=== PATIENT | male | born 2000 | race Hispanic/Latino ===

== ENCOUNTER 2025-01-29 05:04 | Emergency (ER) | payer BC ==
[~2025-01-29] VITALS: Ht 170.2 cm; Wt 90.7 kg
[2025-01-29 05:10] VITALS: TEMP 98
[2025-01-29 05:37] LABS: BASOPHILS # (AUTO) 0.1 (0.0-0.1); BASOPHILS % 0.5 % (0.0-1.0); EOSINOPHILS # (AUTO) 0.3 (0.0-0.4); EOSINOPHILS % 3.3 % (0.0-6.0); HEMATOCRIT 43.1 % (38.2-49.6); LYMPHOCYTES # (AUTO) 2.1 (1.0-3.2); LYMPHOCYTES % 22.3 % (18.0-39.1); MEAN CORPUSCULAR HEMOGLOBIN 31.1 pg (28-32); MEAN CORPUSCULAR HGB CONC 34.8 g/dL (31-35); MEAN CORPUSCULAR VOLUME 89.2 fL (81-99); MONOCYTES # (AUTO) 0.8 (0.2-0.8); MONOCYTES % 7.9 % (4.4-11.3); NEUTROPHILS # (AUTO) 6.3 (2.1-6.9); NEUTROPHILS % 65.6 % (38.7-80.0); PLATELET COUNT 272 x10e3/uL (140-360); RED BLOOD COUNT 4.83 x10e6/uL (4.3-5.7); RED CELL DISTRIBUTION WIDTH 12.4 % (11.7-14.4); WHITE BLOOD COUNT 9.56 x10e3/uL (4.8-10.8)
[2025-01-29] MEDS: ONDANSETRON HCL INJ 2MG/ML 2ML 2 MG/ML VIAL IV STA (05:54)
[2025-01-29] MEDS: SODIUM CHLORIDE 0.9% 1000ML 1,000 ML IV ONE (05:54)
[2025-01-29] MEDS: DICYCLOMINE HCL 20 MG/2 ML VIAL IM ONE (05:55)
[2025-01-29 06:03] LABS: ALBUMIN 4.7 g/dL (3.5-5.0); ALBUMIN/GLOBULIN RATIO 1.5 (0.8-2.0); ANION GAP 16.9 mmol/L (8-16); BILIRUBIN,TOTAL 0.3 mg/dL (0.2-1.2); CALCIUM 8.8 mg/dL (8.4-10.2); CREATININE, SERUM 1.03 mg/dL (0.72-1.25); TOTAL PROTEIN 7.8 g/dL (6.5-8.1)
[2025-01-29 06:05] LABS: POTASSIUM 2.9 mmol/L (3.5-5.1)
[2025-01-29] MEDS: POTASSIUM CHLORIDE 20 MEQ TAB CR PO STA (06:24)
[2025-01-29] MEDS: POTASSIUM CHLORIDE 10MEQ/100ML 100 ML IV SCH (06:25)
[2025-01-29] MEDS ORDERED: DICYCLOMINE HCL20 MG PO (07:36)
[2025-01-29] MEDS ORDERED: ONDANSETRON ODT4 MG PO (07:36)
[2025-01-29 08:00] VITALS: PULSE 67; RESP 16; O2SAT 99
== END 2025-01-29 08:09 | disposition home or self-care (01) ==
LOC: ER 05:29
DX: R10.13 Epigastric pain (principal); K29.70 Gastritis, unspecified, without bleeding; E87.6 Hypokalemia; R11.2 Nausea with vomiting, unspecified; L30.9 Dermatitis, unspecified
CPT/HCPCS: 36415; 80053; 83690; 85025; 99283; J0500; J2405; J2470; J3480; J7030

== ENCOUNTER 2025-05-16 02:16 | Observation (INO) | payer BC ==
[~2025-05-16] VITALS: Ht 170.2 cm; Wt 90.7 kg
[~2025-05-16 02:16] MED LIST: DICYCLOMINE HCL20 MG PO; ONDANSETRON ODT4 MG PO
[2025-05-16] MEDS: ONDANSETRON HCL INJ 2MG/ML 2ML 2 MG/ML VIAL IV STA ×2 (03:31→04:41)
[2025-05-16] MEDS: DICYCLOMINE HCL 20 MG/2 ML VIAL IM ONE (03:31)
[2025-05-16] MEDS: SODIUM CHLORIDE 0.9% 1000ML 1,000 ML IV ONE (03:31)
[2025-05-16] MEDS: Morphine 2mg Syringe 2 MG/ML SYR IV ONE (03:31)
[2025-05-16 03:47] LABS: BASOPHILS % 0.4 % (0.0-1.0); EOSINOPHILS % 5.4 % (0.0-6.0); LYMPHOCYTES % 20.7 % (18.0-39.1); MONOCYTES % 8.6 % (4.4-11.3); NEUTROPHILS % 64.5 % (38.7-80.0); RED CELL DISTRIBUTION WIDTH 12.7 % (11.7-14.4)
[2025-05-16 04:01] LABS: EST GLOMERULAR FILTRATION RATE 106.0 ML/MIN (>=60)
[2025-05-16] MEDS: Morphine 4mg INJECTION 4 MG/ML INJ IV ONE (04:41)
[2025-05-16 04:43] VITALS: TEMP 97.8
[2025-05-16 06:30] VITALS: PULSE 72; RESP 17
[2025-05-16] MEDS ORDERED: ONDANSETRON HCL INJ 2MG/ML 2ML 2 MG/ML VIAL IV PRN ×2 (07:15→16:30)
[2025-05-16] MEDS: SODIUM CHLORIDE 0.9% 1000ML 1,000 ML IV SCH ×2 (08:41→20:27)
[2025-05-16] MEDS ORDERED: MIDAZOLAM HCL 2 MG/2 ML VIAL ONE (15:22)
[2025-05-16] MEDS ORDERED: ROCURONIUM BROMIDE 1 ML IV ONE (15:22)
[2025-05-16] MEDS ORDERED: PROPOFOL IV EMULSION 10 MG/ML 20 ML VIAL ONE (15:22)
[2025-05-16] MEDS ORDERED: FENTANYL CITRATE/PF 100MCG/2 ML INJ ONE ×3 (15:22→16:13)
[2025-05-16] MEDS ORDERED: LIDOCAINE HCL 2% LOCAL INJ 5 ML SDV VIAL INJ ONE (15:22)
[2025-05-16] MEDS ORDERED: LABETALOL HCL 0 ML ONE (15:27)
[2025-05-16] MEDS ORDERED: HYDROMORPHONE 2MG/ML ONE (15:28)
[2025-05-16] MEDS ORDERED: LACTATED RINGER'S 0 ML ONE (15:47)
[2025-05-16] MEDS ORDERED: FAMOTIDINE 20 MG/2 ML VIAL IV ONE (15:53)
[2025-05-16] MEDS ORDERED: DEXAMETHASONE SOD PHOS INJ 4 MG/ML SDV ONE (15:53)
[2025-05-16] MEDS ORDERED: ONDANSETRON HCL INJ 2MG/ML 2ML 2 MG/ML VIAL ONE (15:53)
[2025-05-16] MEDS ORDERED: ACETAMINOPHEN 1000 MG/100 ML 100 ML IV ONE (16:06)
[2025-05-16] MEDS ORDERED: LABETALOL HCL 20 ML ONE (16:08)
[2025-05-16] MEDS ORDERED: SUGAMMADEX SODIUM 200 MG/2 ML VIAL IV ONE (16:09)
[2025-05-16] MEDS ORDERED: KETOROLAC TROMETHAMINE 30 MG/ML VIAL ONE (16:27)
[2025-05-16] MEDS: HYDROMORPHONE 1MG/1ML INJ ONE (17:36)
[2025-05-16 20:00] VITALS: BP 138/90; PULSE 79; RESP 16; TEMP 97.7; O2SAT 100
[2025-05-16 20:09] VITALS: BP 129/75; PULSE 82; RESP 16; TEMP 99; O2SAT 98
[2025-05-16] MEDS: HYDROCODONE/APAP 5MG-325MG TAB PO PRN (20:18)
[2025-05-16] MEDS: KETOROLAC TROMETHAMINE 30 MG/ML VIAL IM PRN (22:25)
[2025-05-17 04:00] VITALS: BP 111/69; PULSE 73; RESP 16; TEMP 98.2; O2SAT 99
[2025-05-17] MEDS: Morphine 4mg INJECTION 4 MG/ML INJ IV PRN (06:28)
[2025-05-17 06:41] LABS: BASOPHILS % 0.2 % (0.0-1.0); EOSINOPHILS % 0.0 % (0.0-6.0); LYMPHOCYTES % 8.2 % (18.0-39.1); MONOCYTES % 10.0 % (4.4-11.3); NEUTROPHILS % 81.2 % (38.7-80.0); RED CELL DISTRIBUTION WIDTH 12.9 % (11.7-14.4)
[2025-05-17 07:22] LABS: EST GLOMERULAR FILTRATION RATE 128.0 ML/MIN (>=60)
[2025-05-17 08:00] VITALS: BP 123/74; PULSE 83; RESP 16; TEMP 97.8; TEMP 97.9; O2SAT 99
[2025-05-17 09:00] VITALS: BP 123/74; PULSE 83; RESP 16; TEMP 97.9; O2SAT 100
[2025-05-17] MEDS: CEFTRIAXONE 2 GM in SODIUM CHLORIDE 0.9% 100 ML IV SCH (09:24)
[2025-05-17 16:19] VITALS: BP 134/79; PULSE 84; RESP 20; TEMP 98.1; O2SAT 98
[2025-05-17] MEDS: DOCUSATE SODIUM 100 MG CAP PO ONE (17:19)
== END 2025-05-17 17:30 | disposition home or self-care (01) ==
LOC: ER 03:02 → ERHOLD 07:16 → MED/SURG2 18:30
PROVIDERS: ADMIT Internal Medicine; ATTEND Internal Medicine
DX: K80.00 Calculus of gallbladder with acute cholecystitis without obstruction (principal); K76.0 Fatty (change of) liver, not elsewhere classified; E86.0 Dehydration; D69.6 Thrombocytopenia, unspecified; D64.9 Anemia, unspecified
CPT/HCPCS: 36415 ×2; 47562; 76705; 80053 ×2; 83690; 85025 ×2; 88304; G0378 ×2; J0131; J0500; J0690; J0696; J1100; J1171; J1308; J1885; J2003; J2250; J2270 ×3; J2405; J2470; J2704; J3010; J3490; J7030 ×2; J7050